=== PATIENT | female | born 2005 | race Caucasian/White ===

== ENCOUNTER 2024-06-29 23:21 | Emergency (ER) | payer OTHER, SELFPAY ==
--- NOTE | 2024-06-29 23:34 | ED.ABDPAIN ---
HPI - Abdominal Pain General Time Seen by Provider: 23:34 Date Seen: 06/29/24 Chief Complaint: Abdominal Pain Stated Complaint: stomach pain since 2pm Time Seen by Provider: 06/29/24 23:34 Source: patient, RN notes reviewed and old records reviewed Mode of arrival: ambulatory Limitations: no limitations History of Present Illness HPI narrative: 19-year-old female who comes in today with abdominal pain which is been going on for about 9 hours. Diffuse abdominal pain with bloating, nausea but no vomiting, no diarrhea. Denies fever urinary symptoms. Has an IUD, has been tapering up on Ozempci recently. Related Data Home Medications ?Medication ?Instructions ?Recorded ?Confirmed buspirone 10 mg tablet 10 mg PO BID 05/04/24 05/04/24 fluoxetine 20 mg capsule (Prozac) 20 mg PO QDAY 05/04/24 05/04/24 spironolactone 25 mg tablet 25 mg PO QDAY 05/04/24 05/04/24 Previous Rx's ?Medication ?Instructions ?Recorded dicyclomine 10 mg capsule 10 mg PO QID PRN abdominal pain 06/30/24 #20 caps Allergies Allergy/AdvReac Type Severity Reaction Status Date / Time No Known Drug Allergies Allergy Verified 06/30/24 00:31 Exam Narrative: Exam Narrative: General: Well-developed and well-nourished, no acute distress Head: Atraumatic and normocephalic Eyes: Pupils are equal reactive, extraocular motions intact, conjunctiva clear ENT: External nose and ears are normal, posterior pharynx without erythema or exudate Neck: No midline cervical tenderness, full spontaneous range of motion the neck, trachea midline, no adenopathy Heart: Regular rate and rhythm no murmurs or thrills Lungs: Clear to auscultation bilaterally without wheezes or crackles Abdomen: Soft, mild diffuse tenderness, nondistended with active bowel sounds Musculoskeletal: No tenderness, deformity, or edema Neurologic: Awake, alert, and oriented x3, no gross focal neurologic deficits, cranial nerves intact as tested Psych: Mood and affect are appropriate Skin: No rashes Const: Vital Signs, click to edit/add: Vital Signs - 24 hr 06/29/24 23:45 Temperature 97.4 F L Pulse Rate [Right Pulse Oximeter] 95 Respiratory Rate 16 Blood Pressure [Le ft Upper Arm] 128/75 Pulse Oximetry 98 Oxygen Delivery Me thod Room Air Course Course ED Course: Reviewed prior primary care visit from June 25 which was routine gynecologic visit with no specific complaints, at that time had recently started Ozempic. Patient presents today with generalized abdominal pain, bloating, nausea. No vomiting, no diarrhea, no fever. On exam, vital is stable, well-appearing, mild diffuse abdominal tenderness. Concern for possible enteritis, gastroenteritis, pancreatitis given Ozempic use, this could also represent medication side effect. Labs are ordered along with Toradol and fluids Reevaluation(s) Time of Reevaluation #1: 00:43 Reevaluation #1: Labs ordered and independently interpreted by me with slightly elevated CRP as well as mild leukocytosis, normal hepatic panel, normal lipase, urinalysis with ketones and few bacteria but no other evidence for infection. IV fluids are ordered along with CT scan of the abdomen and pelvis given leukocytosis and elevated CRP although this could still be from a viral enteritis. Time of Reevaluation #2: 01:29 Reevaluation #2: CT scan independently interpreted by me with wall thickening and stranding at the cecum, reviewed radiology interpretation which agrees with my initial interpretation concerning for terminal ileitis and possible inflammatory bowel disease. Cecal colitis also possible. At this point, symptom management with Bentyl, patient will be discharged but likely will need a colonoscopy. Can follow up with primary care or gastroenterology. Vital Signs Vital signs: Initial Vital Signs Temperature 97.4 F L 06/29/24 23:45 Temperature Source Temporal Artery Scan 06/29/24 23:45 Pulse Rate 95 06/29/24 23:45 Pulse Rhythm Regular 06/29/24 23:45 Pulse Strength 3+ Normal 06/29/24 23:45 Respiratory Rate 16 06/29/24 23:45 Blood Pressure 128/75 06/29/24 23:45 Blood Pressure Mean 92 06/29/24 23:45 Blood Pressure Position Supine 06/29/24 23:45 Pulse Oximetry 98 06/29/24 23:45 Oxygen Delivery Method Room Air 06/29/24 23:45 Vital Signs Temperature 97.4 F L 06/29/24 23:45 Pulse Rate 95 06/29/24 23:45 Respiratory Rate 16 06/29/24 23:45 Blood Pressure 128/75 06/29/24 23:45 Pulse Oximetry 98 06/29/24 23:45 Oxygen Delivery Method Room Air 06/29/24 23:45 Temperature 97.4 F L 06/29/24 23:45 Pulse Rate 95 06/29/24 23:45 Respiratory Rate 16 06/29/24 23:45 Blood Pressure 128/75 06/29/24 23:45 Pulse Oximetry 98 06/29/24 23:45 Oxygen Delivery Method Room Air 06/29/24 23:45 Medications Administered Medications: Generic Name Dose Route Start Last Admin Trade Name Freq PRN Reason Stop Dose Admin Sodium Chloride 1,000 mls @ 1,000 mls/hr 06/30/24 00:45 06/30/24 01:00 0.9 % Sodium Chloride 1000 Ml IV 06/30/24 01:44 1,000 mls/hr .Q1H JERMAN Administration Discontinued Medications Generic Name Dose Route Start Last Admin Trade Name Freq PRN Reason Stop Dose Admin Ketorolac Tromethamine 15 mg 06/29/24 23:57 06/30/24 00:15 Ketorolac 15 Mg/Ml Inj IVP 06/29/24 23:58 15 mg ONCE ONE Administration MDM - Abdominal Pain Lab Data Labs: Lab Results 06/29/24 06/30/24 Range/Units 23:58 00:12 WBC 12.61 H (4.50-11.00) K/uL RBC 4.65 (4.00-5.20) m/uL Hgb 14.0 (12.0-16.0) gm/dL Hct 40.3 (33.0-51.0) % MCV 87 (80-100) fL MCH 30 (26-34) pg MCHC 35 (32-36) gm/dL RDW Coeff of Brynn 11.0 L (11.5-15.5) % Plt Count 237 (140-440) K/uL Neut % (Auto) 77.4 H (42.0-72.0) % Lymph % (Auto) 13.3 L (20-44) % [place] % (Auto) 8.5 (0.0-11.0) % Eos % (Auto) 0.3 (0.0-7.0) % Baso % (Auto) 0.2 (0.0-3.0) % Neut # (Auto) 9.80 H (1.7-7.0) K/uL Lymph # (Auto) 1.70 (0.90-2.90) K/uL [place] # (Auto) 1.10 H (0.00-0.90) K/UL Eos # (Auto) 0.00 (0.00-0.50) K/uL Baso # (Auto) 0.00 (0.00-0.30) K/uL Abs Immat Gran (auto) 0.00 (0.00-0.30) K/uL Imm/Tot Granulo (auto) 0.3 % Sodium 137 (135-149) mmol/L Potassium 3.6 (3.6-5.1) mmol/L Chloride 100 (96-114) mmol/L Carbon Dioxide 27 (20-32) mmol/L Anion Gap 10 (7-15) mEq/L BUN 21 (5-24) mg/dL Creatinine 0.8 (0.5-1.5) mg/dL Estimated Creat Clear 92.02 Estimated GFR 107 ml/min Glucose 98 (60-115) mg/dL Calcium 9.8 (8.4-10.6) mg/dL Total Bilirubin 0.7 (0.1-1.5) mg/dL Direct Bilirubin 0.3 (0.0-0.5) mg/dL AST 32 (12-35) U/L ALT 21 (4-35) U/L Alkaline Phosphatase 62 (40-150) U/L C-Reactive Protein 3.8 H (0.5-1.0) mg/dL Total Protein 7.9 (6.0-8.3) g/dL Albumin 5.0 (3.3-5.0) g/dL Lipase 71 (23-300) U/L Urine Color Yellow (Yellow) Urine Appearance Clear (Clear) Urine pH 6.0 (5.0-8.5) Ur Specific [place] 1.020 (1.000-1.030) Urine Protein Negative (Negative) Urine Glucose (UA) Negative (Negative) Urine Ketones 3+ A (Negative) Urine Blood Negative (Negative) Urine Nitrite Negative (Negative) Urine Bilirubin Negative (Negative) Urine Urobilinogen 0.2 (0.2-1.0) Ur Leukocyte Esterase Negative (Negative) Urine RBC 0-2 (0-2) Urine WBC 0-2 (0-5) Ur Squamous Epith Cells Few (None-Few) Urine Bacteria Few A (None) Discharge Plan Discharge Clinical Impression: Abdominal pain, Ileitis Patient Disposition: Home, Self-Care Condition: Stable Instructions: Abdominal Pain (ED), Colitis (ED) Additional Instructions: Take Tylenol and ibuprofen as needed for pain, take Bentyl for more severe pain Follow-up with primary care and Gastroenterology for further evaluation and treatment Activity Level: Activity as Tolerated Discharge Diet: Regular Prescriptions: New dicyclomine 10 mg capsule 10 mg PO QID PRN (Reason: abdominal pain) Qty: 20 0RF No Action fluoxetine [Prozac] 20 mg capsule 20 mg PO QDAY buspirone 10 mg tablet 10 mg PO BID spironolactone 25 mg tablet 25 mg PO QDAY Follow Up/Referrals: Provider,Not a Local [Primary Care Provider] - Stand Alone Forms: [facility] [employer] Info Instructions
[2024-06-29 23:45] VITALS: BP 128/75; PULSE 95; RESP 16; TEMP 36.3; O2SAT 98; BMI 29.2
[2024-06-30] MEDS: KETOROLAC 15 MG/ML inj IVP (00:15)
[2024-06-30 00:16] LABS: Appearance Urine Clear (Clear); Bilirubin Urine Negative (Negative); Blood Urine Negative (Negative); Color Urine Yellow (Yellow); Glucose Urine Negative (Negative); Ketones Urine 3+ (Negative); Leukocyte Esterase Urine Negative (Negative); Nitrite Urine Negative (Negative); Protein Urine Negative (Negative); Urobilinogen Urine 0.2 (0.2-1.0)
[2024-06-30 00:19] LABS: Basophils Percent Auto 0.2 % (0.0-3.0); Eosinophils Percent Auto 0.3 % (0.0-7.0); Hematocrit 40.3 % (33.0-51.0); Immature Granulocytes Pct Auto 0.3 %; Lymphocytes Percent Auto 13.3 % (20-44); Mean Corpuscular HGB Conc 35 gm/dL (32-36); Mean Corpuscular Hemoglobin 30 pg (26-34); Mean Corpuscular Volume 87 fL (80-100); Monocytes Percent Auto 8.5 % (0.0-11.0); Neutrophils Percent Auto 77.4 % (42.0-72.0); Platelet Count* 237 K/uL (140-440); Red Blood Count 4.65 m/uL (4.00-5.20); White Blood Count* 12.61 K/uL (4.50-11.00)
[2024-06-30 00:23] LABS: Slide Review Reflex No
[2024-06-30 00:31] LABS: Chloride* 100 mmol/L (96-114)
[2024-06-30 00:32] LABS: Sodium* 137 mmol/L (135-149)
[2024-06-30 00:33] LABS: Potassium* 3.6 mmol/L (3.6-5.1)
[2024-06-30 00:34] LABS: Creatinine* 0.8 mg/dL (0.5-1.5); Est. Creatinine Clearance* 92.02; Estimated Glomerular Filt Rate 107 ml/min
[2024-06-30 00:35] LABS: Alanine Aminotransferase* 21 U/L (4-35); Alkaline Phosphatase* 62 U/L (40-150); Anion Gap 10 mEq/L (7-15); Aspartate Amino Transferase* 32 U/L (12-35); Bilirubin Direct* 0.3 mg/dL (0.0-0.5); Bilirubin Total* 0.7 mg/dL (0.1-1.5); Blood Urea Nitrogen* 21 mg/dL (5-24); Calcium* 9.8 mg/dL (8.4-10.6); Carbon Dioxide* 27 mmol/L (20-32); Glucose* 98 mg/dL (60-115); Lipase* 71 U/L (23-300); Total Protein* 7.9 g/dL (6.0-8.3)
[2024-06-30 00:37] LABS: Bacteria Urine Few; RBC Urine 0-2 (0-2); Squamous Epithelial Cell Urine Few (None-Few); WBC Urine 0-2 (0-5)
[2024-06-30 00:38] LABS: C Reactive Protein* 3.8 mg/dL (0.5-1.0)
--- NOTE | 2024-06-30 00:44 | CRLHL7_ITS ---
For Patients: As a result of the Century Cures Act, medical imaging exams and procedure reports are released immediately into your electronic medical record. You may view this report before your referring provider. If you have questions, please contact your health care provider. Indication: Abdominal pain, leukocytosis Technique: CT through the abdomen and pelvis following 81 mL Isovue 370 IV contrast Comparison: None Findings: Lower chest: No acute abnormality appreciated. Hepatobiliary: No significant parenchymal abnormality is appreciated. Spleen: Unremarkable. Pancreas: No acute abnormality appreciated. Adrenal glands: No acute abnormality appreciated. Kidneys: No significant parenchymal abnormality appreciated. No visualized calculi. No hydronephrosis. Bowel: No obstruction. There is severe wall thickening and stranding at the ileocecal junction. The appendix is visualized and appears unremarkable. Vascular: No acute abnormality appreciated. Lymph nodes: No gross lymphadenopathy. Peritoneum: Small volume free fluid. No free air. : No acute abnormality appreciated. IUD present. Soft tissues: No acute abnormality appreciated. Bones: No acute fracture. No lytic or blastic lesion. Impression: Severe wall thickening and stranding at the ileocecal junction. Findings are most concerning for terminal ileitis and raises the concern possible IBD. A shunt considerations, such as cecal colitis, may also be considered. No other acute abnormality appreciated. Please note that all CT scans at this facility use dose modulation, iterative reconstruction, and/or weight-based dosing when appropriate to reduce radiation dose to as low as reasonably achievable. Dictated by Michael Davis MD @ 06/30/2024 1:27:54 AM (Electronically Signed)
[2024-06-30] MEDS: 0.9 % SODIUM CHLORIDE 1000 ml 1,000 ML IV (01:00)
== END 2024-06-30 01:49 | disposition home or self-care (01) ==
PROVIDERS: Emergency Provider Family Medicine
DX: K52.9 Noninfective gastroenteritis and colitis, unspecified (principal)
CPT/HCPCS: 36415; 74177; 80048; 80076; 81001; 83690; 85025; 86140; 87086; 96374; 99284; J1885; J7030; Q9967